=== PATIENT | male | born 1975 | race Caucasian/White ===

== ENCOUNTER 2023-07-04 15:45 | Observation (INO) ==
[2023-07-04 16:24] LABS: ABS Basophils 0.1 10^3/uL (0.0-0.1); ABS Eosinophils 0.2 10^3/uL (0.0-0.5); ABS Neutrophils 7.1 10^3/uL (1.5-7.6); ABS Nucleated RBC 0.01 10^3/ul; Hematocrit 44.2 % (38-53); Mean Corpuscular Hemoglobin 31.5 pg (27-33); Mean Corpuscular Hgb Conc 33.9 g/dL (31-36); Mean Corpuscular Volume 93.1 fL (80-97); Mean Platelet Volume 8.2 fL (7.5-11.2); Nucleated Red Blood Cells % 0.1 %/100WBC (0.0-0.8); Platelet Count 176 10^3/uL (150-450); Red Blood Count 4.75 10^6/uL (4.06-5.63); Red Cell Distribution Width 12.6 % (12-17); White Blood Count 11.5 10^3/uL (3.6-10.2)
[2023-07-04 16:42] LABS: INR 1.05 (0.83-1.13)
[2023-07-04 17:59] LABS: Albumin 4.3 g/dL (3.2-5.2); Albumin/Globulin Ratio 1.7 (1-3); Calcium 9.3 mg/dL (8.6-10.3); Creatinine, Serum 1.08 mg/dL (0.67-1.17); Globulin 2.5 g/dL (2-4); Potassium 4.4 mmol/L (3.5-5.0); Total Protein 6.8 g/dL (6.4-8.9); eGFR CKD-EPI 85.7 (>60)
[2023-07-04 18:34] LABS: High Sensitivity Troponin 1 Hr 157 pg/mL (<20)
[2023-07-04] MEDS: Iohexol 350 (CONTRAST) 500 ML MDV IV ONE (20:52)
[2023-07-04] MEDS: Albuterol HFA INHALER 8 gm MDI INH ONE (21:51)
[2023-07-04 22:42] LABS: C Reactive Protein 5.82 mg/L (<8.01); HDL Cholesterol 53.9 mg/dL
[2023-07-04 23:15] LABS: TSH Ultra Thyroid Stim Horm 1.92 mcIU/mL (0.34-5.60)
[2023-07-04 23:38] LABS: Erythrocyte Sed Rate 3 mm/Hr (0-14)
[2023-07-05] MEDS: Heparin 5000 UNITS/ML 1 mL VIAL SUBCUT SCH (05:44)
[2023-07-05 06:25] LABS: ABS Lymphocytes 0.7 10^3/uL (1.0-4.8); ABS Monocytes 0.2 10^3/uL (0.0-1.1); ABS Neutrophils 6.9 10^3/uL (1.5-7.6); ABS Nucleated RBC 0.01 10^3/ul; Eosinophil % 0.1 %; Hemoglobin 14.7 g/dL (13.2-16.3); Lymphocyte % 9.3 %; Mean Corpuscular Hemoglobin 31.8 pg (27-33); Mean Corpuscular Hgb Conc 34.3 g/dL (31-36); Mean Corpuscular Volume 92.8 fL (80-97); Mean Platelet Volume 8.1 fL (7.5-11.2); Nucleated Red Blood Cells % 0.1 %/100WBC (0.0-0.8); Platelet Count 181 10^3/uL (150-450); Red Blood Count 4.63 10^6/uL (4.06-5.63); Red Cell Distribution Width 12.5 % (12-17); White Blood Count 7.8 10^3/uL (3.6-10.2)
[2023-07-05 06:39] LABS: Activated Partial Thrombo Time 28.6 seconds (26.0-38.0); INR 1.08 (0.83-1.13)
[2023-07-05 07:21] LABS: Calcium 8.9 mg/dL (8.6-10.3); Creatinine, Serum 1.04 mg/dL (0.67-1.17); Magnesium 2.1 mg/dL (1.9-2.7); Potassium 4.6 mmol/L (3.5-5.0); eGFR CKD-EPI 89.7 (>60)
[2023-07-05] MEDS ORDERED: Sulfur Hexaflouride MICROSPHR 25 MG VIAL ONE (08:52)
[2023-07-05 10:14] LABS: ABS Lymphocytes 0.9 10^3/uL (1.0-4.8); ABS Monocytes 0.5 10^3/uL (0.0-1.1); ABS Neutrophils 7.2 10^3/uL (1.5-7.6); Hematocrit 44.7 % (38-53); Hemoglobin 15.3 g/dL (13.2-16.3); Lymphocyte % 10.8 %; Mean Corpuscular Hemoglobin 31.6 pg (27-33); Mean Corpuscular Hgb Conc 34.3 g/dL (31-36); Mean Corpuscular Volume 92.3 fL (80-97); Mean Platelet Volume 8.4 fL (7.5-11.2); Platelet Count 191 10^3/uL (150-450); Red Blood Count 4.84 10^6/uL (4.06-5.63); Red Cell Distribution Width 12.6 % (12-17); White Blood Count 8.7 10^3/uL (3.6-10.2)
[2023-07-05 10:27] LABS: Activated Partial Thrombo Time 28.4 seconds (26.0-38.0); INR 1.07 (0.83-1.13)
[2023-07-05] MEDS: NS 0.9% 1000 ml BAG 1,000 ML IV SCH (10:41)
[2023-07-05 11:00] LABS: Calcium 9.3 mg/dL (8.6-10.3); Potassium 4.8 mmol/L (3.5-5.0)
[2023-07-05 11:14] LABS: TSH Ultra Thyroid Stim Horm 0.59 mcIU/mL (0.34-5.60)
[2023-07-05 11:15] LABS: Free T3 3.01 pg/mL (2.5-3.9)
[2023-07-05 11:16] LABS: Free T4 1.26 ng/dL (0.61-1.12)
[2023-07-05 11:21] LABS: Ferritin 25.3 ng/mL (24-336)
[2023-07-05] MEDS ORDERED: Heparin 2 UNITS/ML 1000 mls 3,000 ML IV ONE (14:43)
[2023-07-05] MEDS ORDERED: Lidocaine 1% MPF 5 ML VIAL ONE (14:43)
[2023-07-05] MEDS ORDERED: nitroGLYCERIN DRIP 25,000 MCG/250 ML BTL ONE (14:43)
[2023-07-05] MEDS ORDERED: niCARdipine 0.1MG/ML IVPREMIX 20 MG/200 ML BAG IV ONE (14:44)
[2023-07-05] MEDS ORDERED: Iohexol 350 (CONTRAST) 200 ML MDV IV ONE (14:44)
[2023-07-05] MEDS ORDERED: Heparin 1,000 UNIT/ML 10 ml (10,000 UNITS) CATHLAB/DIALYSIS ONE (14:55)
[2023-07-05] MEDS ORDERED: fentaNYL 100 mcg/2 ml 50 MCG/ML VIAL ONE (14:55)
[2023-07-05] MEDS ORDERED: Midazolam 5 mg/5 ml VIAL 1 mg/ml 5 ml VIAL (5 mg) ONE (14:55)
[2023-07-05] MEDS ORDERED: Flumazenil 0.5 mg/5 ml 0.1 MG/ML 5 ml VIAL IV PRN (15:03)
[2023-07-05] MEDS ORDERED: Naloxone 0.4 mg VIAL 0.4 mg/ml 1 ml VIAL IV PUSH PRN (15:03)
[2023-07-05 15:43] LABS: POC SO2 80 %
[2023-07-05 15:43] LABS: POC SO2 71 %
[2023-07-05 15:43] LABS: POC SO2 68 %
[2023-07-05 15:43] LABS: POC SO2 66 %
[2023-07-05 15:43] LABS: POC SO2 73 %
[2023-07-05 15:43] LABS: POC SO2 94 %
[2023-07-05 15:43] LABS: POC SO2 64 %
[2023-07-05] MEDS: Midazolam 10 mg/10 ml VIAL 1 mg/ml 10 ml VIAL (10 mg) IV SLOW PU ONE (16:00)
[2023-07-05] MEDS: fentaNYL 100 mcg/2 ml 50 MCG/ML VIAL IV SLOW PU ONE (16:00)
[2023-07-06 06:21] LABS: ABS Basophils 0.1 10^3/uL (0.0-0.1); ABS Eosinophils 0.3 10^3/uL (0.0-0.5); ABS Lymphocytes 2.6 10^3/uL (1.0-4.8); ABS Monocytes 1.1 10^3/uL (0.0-1.1); ABS Nucleated RBC 0.02 10^3/ul; Eosinophil % 2.9 %; Hematocrit 43.3 % (38-53); Hemoglobin 14.5 g/dL (13.2-16.3); Lymphocyte % 26.2 %; Mean Corpuscular Hemoglobin 31.8 pg (27-33); Mean Corpuscular Hgb Conc 33.6 g/dL (31-36); Mean Corpuscular Volume 94.5 fL (80-97); Mean Platelet Volume 8.7 fL (7.5-11.2); Nucleated Red Blood Cells % 0.1 %/100WBC (0.0-0.8); Platelet Count 152 10^3/uL (150-450); Red Blood Count 4.57 10^6/uL (4.06-5.63); Red Cell Distribution Width 12.9 % (12-17); White Blood Count 10.1 10^3/uL (3.6-10.2)
[2023-07-06 06:45] LABS: Anion Gap 12 mmol/L (2-16); Blood Urea Nitrogen 19 mg/dL (6-24); CO2 Carbon Dioxide 20 mmol/L (22-32); Calcium 8.7 mg/dL (8.6-10.3); Chloride 105 mmol/L (101-111); Creatinine, Serum 0.98 mg/dL (0.67-1.17); Glucose 87 mg/dL (70-100); Sodium 137 mmol/L (135-145); eGFR CKD-EPI 96.3 (>60)
[2023-07-06 09:23] LABS: Potassium Redraw 4.5 mmol/L (3.5-5.0)
[2023-07-06] MEDS: Enoxaparin 40 MG/0.4 ML SYR SUBCUT SCH (11:41)
[2023-07-06 12:11] LABS: HIV 4th Generation Nonreactive (Nonreactive)
[2023-07-06 13:33] VITALS: BP 103/81
== END 2023-07-06 18:01 | disposition home or self-care (01) ==
LOC: EDHOLD 15:45 → ED 15:45 → SUATTDRO 23:29 → MEDTELE 07-05 03:25
PROVIDERS: ADMIT Internal Medicine; ATTEND Internal Medicine